=== PATIENT | male | born 1965 | race Caucasian/White ===

== ENCOUNTER 2024-04-17 14:30 | Outpatient (CLI) | payer BC | END 2024-04-17 14:31 | disposition home or self-care (01) | LOC: CT 14:30 | PROVIDERS: ATTEND Family Medicine | DX: R10.9 Unspecified abdominal pain (principal); N28.1 Cyst of kidney, acquired; N20.2 Calculus of kidney with calculus of ureter; N13.30 Unspecified hydronephrosis | CPT/HCPCS: 74176 ==